=== PATIENT | female | born 1980 | race Hispanic/Latino ===

== ENCOUNTER 2018-04-19 08:49 | Outpatient (CLI) | payer OTHER ==
--- NOTE | 2018-04-19 15:06 | Ultrasound Report ---
ULTRASOUND ABDOMEN COMPLETE: TECHNIQUE: Transabdominal ultrasound with color Doppler interrogation. HISTORY: Other specified diseases of the liver. COMPARISON: Ultrasound abdomen dated 08/02/17. FINDINGS: LIVER: The liver remains normal size, contour and echotexture. The previously described homogeneously hyperechoic liver lesions measuring 2.9 cm and 1.9 cm are unchanged and consistent with cavernous hemangiomas. BILIARY SYSTEM: Cholecystectomy changes are again noted. The CBD measures 3 mm. PANCREAS: Normal. SPLEEN: Normal. KIDNEYS: Normal. AORTA/IVC: Normal. ASCITES: None. IMPRESSION: Cavernous hemangiomas of the liver. Otherwise, unremarkable exam. No change since 08/02/17.
== END 2018-04-19 08:50 | disposition home or self-care (01) ==
LOC: US 08:49
PROVIDERS: ATTEND Family Medicine
DX: K76.89 Other specified diseases of liver (principal); D18.09 Hemangioma of other sites; Z88.8 Allergy status to other drugs, medicaments and biological substances
CPT/HCPCS: 76700